=== PATIENT | male | born 1970 | race Caucasian/White ===

== ENCOUNTER 2020-05-29 19:42 | Emergency (ER) | payer BC, SELFPAY ==
[2020-05-29 19:48] VITALS: BP 142/98; PULSE 66; RESP 16; TEMP 36.6; O2SAT 97
--- NOTE | 2020-05-29 19:58 | W.ED.GENAD ---
Discharge Plan Disposition Patient Disposition: HOME Condition: Stable Discharge Details Clinical Impression: Laceration of finger of right hand Primary Care Provider: Silvia Wilder ED Provider: Sumi Kelley Home Meds and New Rx's Prescriptions: No Action No Known Home Meds RF: 0 Discharge Instructions Instructions: Finger Laceration (ED), Skin Adhesive Care (ED) Additional Instructions: Tissue adhesive will fall off in approximately 4 to 6 days. Keep clean and dry. No scrubbing no soaking. Return to the ED for any signs of infection including increased redness, swelling, drainage or red streaks. The anesthesia medication will wear off in approximately 2 to 3 hours. Follow up with primary care provider in 3-5 days. Return to ED sooner if any worsening or concerns. Increase oral fluids. Please take Tylenol or Ibuprofen with food every 4-6 hours as needed for pain and swelling. Stand Alone Forms: Work Release Referrals: Silvia Wilder MD, [place] [Primary Care Provider] - Medical Decision Making 50-year-old male presents to the ED chief complaint of right third digit laceration which occurred just prior to arrival. Patient states he was attempting to catch a falling ceramic dish while doing dishes sustaining laceration to the pad of his right middle finger. On initial exam there is some small venous oozing noted, does have full range of motion noted to the finger, unsure of last tetanus vaccination. No other injuries or complaints. Digital block performed as noted in procedure note above patient tolerated well anesthesia was achieved. After further evaluation of laceration is determined does not need sutures at this time. Bleeding has stopped. Questionable reattachment of the flap color seems pale. Because of this and probable loss of flap will just do tissue adhesive and dressing at this time. Patient is agreeable to this plan. Discussed strict return instructions including signs of infection and discussed home care. Patient verbalized understanding. Dressing applied by residential treatment staff prior to discharge. HPI General Mode of arrival: ambulatory. Date/Time Provider Initiated Documentation: 05/29/20 19:48. Limitations to Documentation: no limitations. Information obtained by: patient. HPI Narrative: 50-year-old male presents to the ED chief complaint of right third digit laceration which occurred just prior to arrival. Patient states he was attempting to catch a falling ceramic dish while doing dishes sustaining laceration to the pad of his right middle finger. On initial exam there is some small venous oozing noted, does have full range of motion noted to the finger, unsure of last tetanus vaccination. No other injuries or complaints. Related Data Home Medications Medication Instructions Recorded Confirmed Unknown [No Known Home Meds] 05/29/20 05/29/20 Allergies Allergy/AdvReac Type Severity Reaction Status Date / Time No Known Allergies Allergy Unverified 05/03/17 11:27 General Stated Complaint: Laceration LORIE: 4 Review of Systems Integumentary/Breasts Skin/Breast: Reports wounds (Laceration right middle finger) [facility] Surgical History VEIN ABLATION (LEFT GREATER) (09/15/14) Social History Smoking/Tobacco Use Status: Former Tobacco Use Smoking risk assessment performed?: Yes Alcohol Intake: current Alcohol Intake frequency: holidays/special occasions only Drug use: Never Substance use type: does not use Do you feel safe at home: Yes Do you feel safe in your relationship?: Yes Exam Extrem Right upper extremity: hand Details: laceration 3rd digit palmar aspect distal Details: flap, actively bleeding, involving subcutaneous tissue and with motor nerve function intact; not contaminated Course Vital Signs Vital signs: Vital Signs Temperature 36.6 C 05/29/20 19:48 Pulse 66 05/29/20 19:48 Respiratory Rate 16 05/29/20 19:48 Blood Pressure 142/98 H 05/29/20 19:48 Pulse Oximetry 97 05/29/20 19:48 Temperature 36.6 C 05/29/20 19:48 Temperature Source Skin 05/29/20 19:48 Pulse 66 05/29/20 19:48 Respiratory Rate 16 05/29/20 19:48 Blood Pressure 142/98 H 05/29/20 19:48 Blood Pressure Position Sitting 05/29/20 19:48 Pulse Oximetry 97 05/29/20 19:48 Oxygen Delivery Method Room Air 05/29/20 19:48 Oxygen Flow Rate 0 05/29/20 19:48 Procedures Laceration Laceration 1: Site: hand Side (If applicable): right Size (cm): 1 Description: flap Depth: simple, single layer Pre-repair: wound explored and irrigated extensively Skin layer closed with: other (Tissue adhesive) Nerve Block Nerve Block 1: Time out performed: No Local Anesthetic: Lidocaine 1% and Bupivicaine 0.5% Amount of anesthesia used (mL): 4 Side: right Nerve Blocks: digital (4 sided Ring block) Procedure Successful: Yes Patient Tolerated Procedure: well Complications: none
[2020-05-29] MEDS: Bupivacaine 0.5% Pres-Free 30 ML VIAL IJ (20:10)
== END 2020-05-29 21:30 | disposition home or self-care (01) ==
PROVIDERS: Emergency Provider Registered Nurse Emergency; PCP Family Medicine
DX: S61.212A Laceration without foreign body of right middle finger without damage to nail, initial encounter (principal); W25.XXXA Contact with sharp glass, initial encounter
CPT/HCPCS: 12001; 90471

== ENCOUNTER 2023-07-25 04:56 | Outpatient (CLI) | payer BC, SELFPAY ==
[2023-07-25 09:49] LABS: Anion Gap 13.3 mmol/L (3-11); BUN 25 mg/dL (7-18); CO2 24.7 mmol/L (21.0-32.0); CREATININE 1.3 mg/dL (0.70-1.30); Calcium 9.4 mg/dL (8.5-10.1); Calculated LDL 127 mg/dL (<100); Chloride 103 mmol/L (98-107); Cholesterol 196 mg/dL (<200); Estimated GFR 65.28 (mL/min/1.73m2); Glucose 102 mg/dL (74-106); HDL Cholesterol 57 mg/dL (40-60); Potassium 4.2 mmol/L (3.5-5.1); Sodium 141 mmol/L (136-145); Triglyceride 60 mg/dL (<150)
[2023-07-25 17:52] LABS: PSA, Screening 0.5 ng/mL (<=3.5)
== END 2023-07-25 04:57 | disposition home or self-care (01) ==
LOC: LBO 04:56
PROVIDERS: Emergency Medicine; Absent Provider Nurse Practitioner Adult Health; Referring Provider Nurse Practitioner Adult Health; Visit Provider Nurse Practitioner Adult Health
DX: I10 Essential (primary) hypertension (principal); R35.1 Nocturia; N40.1 Benign prostatic hyperplasia with lower urinary tract symptoms; Z12.5 Encounter for screening for malignant neoplasm of prostate
CPT/HCPCS: 36415; 80048; 80061; 84153

== ENCOUNTER 2023-09-07 02:05 | Outpatient (CLI) | payer BC, SELFPAY ==
[2023-09-07 08:05] LABS: Anion Gap 6.2 mmol/L (3-11); BUN 22 mg/dL (7-18); CO2 27.8 mmol/L (21.0-32.0); CREATININE 1.2 mg/dL (0.70-1.30); Calcium 9.2 mg/dL (8.5-10.1); Chloride 104 mmol/L (98-107); Estimated GFR 71.86 (mL/min/1.73m2); Glucose 103 mg/dL (74-106); Potassium 3.8 mmol/L (3.5-5.1); Sodium 138 mmol/L (136-145)
[2023-09-07 08:09] LABS: Hemoglobin A1C 5.5 % (<5.7)
== END 2023-09-07 02:06 | disposition home or self-care (01) ==
LOC: LBO 02:06
PROVIDERS: PCP Nurse Practitioner Adult Health; Visit Provider Nurse Practitioner Adult Health
DX: I10 Essential (primary) hypertension (principal); R73.01 Impaired fasting glucose
CPT/HCPCS: 36415; 80048; 83036

== ENCOUNTER 2024-03-31 01:31 | Outpatient (CLI) | payer BC, SELFPAY ==
--- NOTE | 2024-03-31 08:15 | DI.RAD_ITS ---
Exam(s) XR KNEE RT 3V AP,LAT,LOUIS EXAM: XR KNEE RT 3V AP,LAT,LOUIS CLINICAL HISTORY: 7 weeks R knee pain,s/p remote injury,? bony abnl,derangement meniscus,. TECHNIQUE: 2D digital imaging was performed of the right knee. Four views obtained. AP, lateral and PA tunnel views were obtained. COMPARISON: CR RIGHT KNEE LIMITED 1 OR 2 VIEW from 05/03/2017 FINDINGS: BONES: No acute fracture is present. No bony destructive lesion is seen. JOINTS: The knee is normally aligned. No joint effusion is seen. SOFT TISSUE: Normal. IMPRESSION: Unremarkable radiographs of the right knee. DATA REPOSITORY: RADIATION DOSE DELIVERED:
== END 2024-03-31 01:51 ==
LOC: DI 01:31
PROVIDERS: PCP Nurse Practitioner Adult Health; Visit Provider Nurse Practitioner Adult Health
DX: M25.561 Pain in right knee (principal)
CPT/HCPCS: 73562

== ENCOUNTER 2024-05-30 00:22 | Outpatient (CLI) | payer BC, SELFPAY ==
--- OUTSIDE RECORDS SUMMARY | 2024-05-30 00:38 | XMS_ITS | Encounter Summary ---
Author Organization [facility] [place] [address] Care Team Providers Care Sheet Fed Printer Name Role Phone Oscar Jones MD Primary Care Provider U navailable Reason for Visit * Reason Onset Date Comments Medication Refill 04/29/2014 Encounter Details Date Type Department Care Team (Late st Contact Info) Description 04/29/2014 [place] [address] Helio Reis MD [facility] [place] [address] Social History Tobacco Use Types Packs/Day Years Used Date Smoking Tobacco: Never Smokeless Tobacco: Former Chew Quit: 01/15/1998 Alcohol Use Standard Drinks/Week Comments Yes 0 (1 standard drink = 0.6 oz pur e alcohol) Occasional Sex and Gender Information Value Date Recorded Sex Assigned at Not on file Gender Identity Not on file Sexual Orientation Not on file documented as of this encounter Plan of Treatment Not on file documented as of this encounter Visit Diagnoses Not on filedocumented in this encounter Care Teams Sheet Fed Printer Relationship Specialty Start Date End Date Oscar Jones MD PCP - General 04/12/10 02/27/17 documented as of this encounter
--- OUTSIDE RECORDS SUMMARY | 2024-05-30 00:38 | XMS_ITS | Encounter Summary ---
Author Organization [facility] Address [address] [place] [id number] Care Team Providers Care Roofing Layer Name Role Phone Unavailable Primary Care Provider Unavailabl e Encounter Details Date Type Department Care Team (Late st Contact Info) Description 07/25/2023 Lab Requisition [facility] Pathology & Laboratory Medicine - [facility] [address] [place] [address] Outr Resulting Lab, Provider Social History Tobacco Use Types Packs/Day Years Used Date Smoking Tobacco: Never Assessed Sex and Gender Information Value Date Recorded Sex Assigned at Not on file Legal Sex Male 19:16 EDT Gender Identity Not on file Sexual Orientation Not on file documented as of this encounter Plan of Treatment Not on file documented as of this encounter Procedures Procedure Name Priority Date/Time Associated Diagnosis Comments PSA TOTAL, DIAGNOSTIC Routine 07/25/2023 8:53 EST documented in this encounter Results * PSA TOTAL, DIAGNOSTIC (07/25/2023 8:53 EST) PSA 0.5 <=3.5 ng/mL 07/25/2023 17:48 EST [facility] Blood VENOUS BLOOD / Unknown 07/25/2023 8:53 EST 07/25/2023 16:42 EST Narrative [facility] - 07/25/2023 17:48 EST NOTE: Serum PSA concentration should not be interpreted as absolute evidence for the presence or absence of malignant disease. Assayed on Siemens ADVIA Centaur XPT using chemiluminescent technology.??Values obtained by using different assay methods cannot be used interchangeably. us Provider Outr Resulting Lab CHEMISTRY & BLOOD GA S ORDERABLES Final Result [facility] [address] [place] [address] documented in this encounter Visit Diagnoses Not on filedocumented in this encounter
--- OUTSIDE RECORDS SUMMARY | 2024-05-30 00:38 | XMS_ITS | Encounter Summary ---
Author Organization [facility] Address [facility] [place] [address] Care Team Providers Care Class B Truck Driver Name Role Phone Oscar Jones MD Primary Care Provider U ceceliaailable Reason for Visit * Reason Comments Medication Refill Encounter Details Date Type Department Care Team (Late st Contact Info) Description 04/27/2014 [place] [address] Helio Reis MD [facility] [place] [address] Social History Tobacco Use Types Packs/Day Years [...] on filedocumented in this encounter Care Teams Class B Truck Driver Relationship Specialty Start Date End Date Oscar Jones MD PCP - General 04/12/10 02/27/17 documented as of this encounter
--- OUTSIDE RECORDS SUMMARY | 2024-05-30 00:38 | XMS_ITS | Encounter Summary ---
Author Organization [facility] Address [facility] [facility] [place] [address] Care Team Providers Care Supervisor Electronics Processing Name Role Phone Unknown Primary Care Provider Unavailabl e Encounter Details Date Type Department Care Team (Late st Contact Info) Description 05/13/2019 [place] [address] Mariusz Dailey MD [facility] [place] [address] Social History Tobacco Use Types Packs/Day Years Used Date Smoking Tobacco: Never Smokeless Tobacco: Former Chew Quit: 01/15/1998 Alcohol Use Standard Drinks/Week Comments Yes 0 (1 standard drink = 0.6 oz pur e alcohol) Occasional Sex and Gender Information Value Date Recorded Sex Assigned at Not on file Gender Identity Not on file Sexual Orientation Not on file documented as of this encounter Miscellaneous Notes * Telephone Encounter - Erum Duron - 05/13/2019 9:59 AM EST [facility] called to refer Ronen for a retinal hole OD, without detachment. Vision is 20/25OD. Explained that there is no retina coverage until 05/15, provider understands and is okay with the patient waiting until then. Appointment made with DOC for 05/15 documented in this encounter Plan of Treatment Not on file documented as of this encounter Visit Diagnoses Not on filedocumented in this encounter Care Teams Supervisor Electronics Processing Relationship Specialty Start Date End Date Unknown None PCP - General 02/28/17 documented as of this encounter
--- OUTSIDE RECORDS SUMMARY | 2024-05-30 00:38 | XMS_ITS | Clinical Summary ---
Author Organization [facility] Address [facility] [place] [address] Care Team Providers Care Pipeline Dispatcher Name Role Phone Unknown Primary Care Provider Unavailabl e Allergies Active Allergy Reactions Criticality Noted Date Comments Pollen Extracts 01/15/2013 Dust,dirt Medications Medication Sig Dispensed Refills Start Date End Date Status acetaminophen (TYLENOL) 500 mg tablet Take 1,000 mg by mouth as needed. Active ibuprofen (ADVIL;MOTRIN) 200 mg tablet Take 400 mg by mouth every 6 hours as needed. Active LORazepam (ATIVAN) 1 mg tablet Take 1 tablet by mouth nightly as needed. 15 tablet 5 01/15/2013 Active Additional Information Patient not taking.Reported on 06/18/2019 indomethacin (INDOCIN) 50 mg Capsule TAKE ONE CAPSULE BY MOUTH TWICE A DAY NEEDED 30 capsule 2 04/27/2014 Active Additional Information Patient not taking.Reported on 06/18/2019 hydrOXYzine (VISTARIL) 25 mg Capsule Take 1 capsule by mouth 2 times daily as needed. 30 capsule 3 04/29/2014 Active Additional Information Patient not taking.Reported on 06/18/2019 Active Problems Problem Noted Date Diagnosed Date Migraine 01/15/2013 Hx of submucous nasal surgery 01/15/2013 S/P tonsillectomy 01/15/2013 Social History Tobacco Use Types Packs/Day Years Used Date Smoking Tobacco: Never Smokeless Tobacco: Former Chew Quit: 01/15/1998 Alcohol Use Standard Drinks/Week Comments Yes 0 (1 standard drink = 0.6 oz pur e alcohol) Occasional Sex and Gender Information Value Date Recorded Sex Assigned at Not on file Gender Identity Not on file Sexual Orientation Not on file Last Filed Vital Signs Vital Sign Reading Time Taken Comments Blood Pressure 136/86 01/15/2013 2:34 PM EDT Pulse 70 01/15/2013 2:34 PM EDT Temperature - - Respiratory Rate - - Oxygen Saturation - - Inhaled Oxygen Concentration - - Weight 99.8 kg (220 lb) 01/24/2013 5:40 AM EDT Height 180.3 cm (5' 11) 01/15/2013 2:34 PM EDT Body Mass Index 30.68 01/15/2013 2:34 PM EDT Plan of Treatment Health Maintenance Due Date Last Done Comments CT Colonography 1969 Colonoscopy 1969 Colorectal Cancer Screening 1969 FIT DNA 1969 FIT 1969 Sigmoidoscopy (10 year) with FIT yearly 1969 Sigmoidoscopy 1969 HIV screen 1987 Hepatitis C Screening 1987 Lipid Screening 1987 Hepatitis B vaccine (0-59 yrs) (1) 1988 Tetanus/Diphtheria/Pertussis Vaccines (1 - Tdap) 03/28 Zoster vaccine (1 of 2) 2019 Covid-19 Vaccine (1 - season) 2024 Influenza (Flu) vaccine (1 o f 1 - Influenza standard series) 01/20/2024 Advance Directive 2024 Care Teams Pipeline Dispatcher Relationship Specialty Start Date End Date Unknown None PCP - General 02/28/17
--- OUTSIDE RECORDS SUMMARY | 2024-05-30 00:38 | XMS_ITS | Clinical Summary ---
Author Organization [facility] Address [address] [place] [address] Care Team Providers Care Master Ocean Name Role Phone Unavailable Primary Care Provider Unavailabl e Social History Tobacco Use Types Packs/Day Years Used Date Smoking Tobacco: Never Assessed Sex and Gender Information Value Date Recorded Sex Assigned at Not on file Legal Sex Male 19:16 EDT Gender Identity Not on file Sexual Orientation Not on file Plan of Treatment Health Maintenance Due Date Last Done Comments Hepatitis C Screen 1969 Hepatitis B Vaccine (1 of 3 - 19+ 3-dose series) 03/28 COVID-19 Vaccine (2023- season) 2024
--- OUTSIDE RECORDS SUMMARY | 2024-05-30 00:38 | XMS_ITS | Encounter Summary ---
Author Organization [facility] [place] [address] Care Team Providers Care Protection Chief Industrial Plant Name Role Phone Unknown Primary Care Provider Unavailabl e Encounter Details Date Type Department Care Team (Late st Contact Info) Description 05/15/2019 12:45 PM EST Office Visit Ophthalmology at [facility] [place] [address] Paulina [place] MD Retinal hole of right eye Social History Tobacco Use Types Packs/Day Years Used Date Smoking Tobacco: Never Smokeless Tobacco: Former Chew Quit: 01/15/1998 Alcohol Use Standard Drinks/Week Comments Yes 0 (1 standard drink = 0.6 oz pur e alcohol) Occasional Sex and Gender Information Value Date Recorded Sex Assigned at Not on file Gender Identity Not on file Sexual Orientation Not on file documented as of this encounter Progress Notes * Paulina [place] MD - 05/15/2019 12:45 PM EST ASSESSMENT/PLAN: 1. Retinal hole of right eye Visual Acuity Visual Acuity (Snellen - Linear) Right Left Dist sc 20/20 -2 20/20 Near cc 20/25 20/20 1. Retinal hole, right eye (Dx 04/2019) We agree with your diagnosis of retinal hole in the right eye. Discussed the risks/benefits/alternatives of observation and prophylactic laser photocoagulation and patient wishes to proceed with prophylactic laser Pertinent risk factors: (-) Family history of retinal detachment, (+++) symptoms, (-) history of retinal detachment in the one eye The pertinent AAO video shown/ASRS fact sheet given Discussed the risk of surgery including need for additional surgery, cataract formation, retinal detachment, suprachoroidal hemorrhage, lens dislocation, loss of vision 2. Posterior vitreous detachment, right eye Discussed the high-risk period for RDs and RTs are the first 1-2 months after the onset of the PVD.RD precautions given. Also discussed the chances and symptoms of PVD in the fellow eye Follow up 5-6 weeks for HCK OD /OCT OU I, Joey Davenport, have performed the documentation for this encounter in the presence of, and acting as a scribe for Paulina [place] MD. I performed the services which were documented by the scribe, and I agree with the accuracy of the documentation in this encounter. Paulina [place] MD, PhD Extended Ophthalmoscopy Indication: 1. Retinal hole of right eye Technique: A) Indirect ophthalmoscopy with scleral depression B) Slit lamp exam with 90D/78D lens Findings: Main Ophthalmology Exam External Exam Right Left External Normal Normal Slit Lamp Exam Right Left Lids/Lashes Normal Normal Conjunctiva/Sclera White and quiet White and quiet Cornea Clear Clear Anterior Chamber Deep and quiet Deep and quiet Iris Round and reactive, dilated Round and reactive, dilated Lens Clear Clear Fundus Exam Right Left Vitreous PVD, no pigment Normal Disc Normal Normal C/D Ratio 0.3 0.4 Macula Normal Normal Vessels Normal Normal Periphery superior operculated hole Normal documented in this encounter Plan of Treatment Not on file documented as of this encounter Visit Diagnoses Diagnosis Retinal hole of right eye documented in this encounter Care Teams Protection Chief Industrial Plant Relationship Specialty Start Date End Date Unknown None PCP - General 02/28/17 documented as of this encounter
--- OUTSIDE RECORDS SUMMARY | 2024-05-30 00:38 | XMS_ITS | Referral Summary ---
Author Organization [facility] Address [address] [place] [address] Care Team Providers Care Business Management Specialist Name Role Phone Unavailable Primary Care Provider Unavailabl e Social History Tobacco Use Types Packs/Day Years Used Date Smoking Tobacco: Never Assessed Sex and Gender Information Value Date Recorded Sex Assigned at Not on file Legal Sex Male 19:16 EDT Gender Identity Not on file Sexual Orientation Not on file Plan of Treatment Not on file
--- OUTSIDE RECORDS SUMMARY | 2024-05-30 00:38 | XMS_ITS | Encounter Summary ---
Author Organization [facility] Address [facility] [place] [address] Care Team Providers Care Winding Machine Operator Name Role Phone Unknown Primary Care Provider Unavailabl e Encounter Details Date Type Department Care Team (Late st Contact Info) Description 06/18/2019 3:30 PM EST Office Visit Ophthalmology at [facility] [place] [address] Paulina [place] MD Retinal hole of right eye (s/p prophylactic LR 05/15/19) Social History Tobacco Use Types Packs/Day Years [...] Progress Notes * Paulina [place] MD - 06/18/2019 3:30 PM EST ASSESSMENT/PLAN: 1. Retinal hole of right eye (s/p prophylactic LR 05/15/19) Visual Acuity Visual Acuity (Snellen - Linear) Right Left Dist sc 20/25 -2 20/30 Dist ph sc 20/20 20/20 -1 Near sc 20/20 20/25 Tonometry Tonometry (Applanation, 3:39 PM) Right Left Pressure 18 18 1. Retinal hole, right eye (Dx 04/2019) - s/p prophylactic laser 05/15/19 Today 06/18/19 The retinal hole is well treated with laser. Reassurance provided and recommended observation. 2. ERM OD Mild, monitor 3 Posterior vitreous detachment, right eye monitor Follow up 1 year for DFE/OCT OU I, Joey Davenport, have performed the documentation for this encounter in the presence of, and acting as a scribe for Paulina [place] MD. I performed the services which were documented by the scribe, and I agree with the accuracy of the documentation in this encounter. Paulina [place] MD, PhD documented in this encounter Plan of Treatment Not on file documented as of this encounter Visit Diagnoses Diagnosis Retinal hole of right eye (s/p prophylactic LR 05/15/19) documented in this encounter Care Teams Winding Machine Operator Relationship Specialty Start Date End Date Unknown None PCP - General 02/28/17 documented as of this encounter
--- OUTSIDE RECORDS SUMMARY | 2024-05-30 00:38 | XMS_ITS | Encounter Summary ---
Author Organization [facility] Address [facility] [place] [address] Care Team Providers Care Manager Critical Care Name Role Phone Unknown Primary Care Provider Unavailabl e Encounter Details Date Type Department Care Team (Latest Contact Info) Description 05/15/2019 1:30 PM EST Procedure visit Ophthalmology at [facility] [place] [address] Paulina [place] MD Retinal hole of right [...] on file documented as of this encounter Patient Instructions * Patient Instructions* Paulina [place] MD - 05/15/2019 1:30 PM EST The doctor recommended laser retinopexy. What should I expect? Before the Laser The doctor will use topical anesthetics with drops and/or injections to numb up the eye. During the laser The laser takes 5-15 minutes. The patients frequently feel some discomfort that is generally well tolerated. If you feel that you cannot tolerate it please tell the doctor and the settings will be adjusted. If you still feel pain the treatment can be stopped. A small minority of the patients feel light-headed during the laser. If you feel so please let usknow and we will stop it. If you're diabetic please make sure you eat at your usual times prior to the laser. Immediately after the laser The vision is very blurry for 1-2 minutes but goes back to baseline. Some patients feel foreign body sensation and mild pain for ~24 hours and in these cases application of over the counter artificial tears is recommended. Over the counter medications (e.g. Tylenol or ibuprophen) might also help For several days after the laser The eye might look red and swollen. Use of artificial tears sometimes helps. Activity restrictions: A) If the laser was done for the treatment of a retinal tear/detachment please avoid any high impact activities such as long distance running, heavy weight lifting (i.e. More than 20lbs), contact sports (e.g. boxing, basketball etc) for 2 weeks. It's ok however to do most of your basic daily activities including sports with low impact (swimming, bike riding, walking on treadmill etc) B) These limitations do not apply to those who had Panretinal photocoagulation laser for diabeticretinopathy. These patients can continue their previous daily activities documented in this encounter Plan of Treatment Not on file documented as of this encounter Procedures Procedure Name Priority Date/Time Associated Diagnosis Comments REPAIR RETINAL BREAK(S)-LASER - OD - RIGHT EYE Routine 05/15/2019 5:39 PM EST Retinal hole of right eye documented in this encounter Results * Repair Retinal Break(S)-Laser - OD - Right Eye (05/15/2019 5:39 PM EST) Anatomical Region Laterality Modality Other Narrative 05/15/2019 5:39 PM EST Pre-Op Patient understands the risks and benefits of the treatment as outlined on the consent. Anesthesia Subconjunctival anesthesia was used. Laser Information The type of laser was argon. Color was green. The duration in seconds was 80.0. Laser power was 300.0. Total spots was 45. Post-op The patient tolerated the procedure well. There were no complications. The patient received written and verbal post procedure care education. Paulina [place] MD OPHTHALMOLOGY SERVICES ORDERABLES documented in this encounter Visit Diagnoses Diagnosis Retinal hole of right eye documented in this encounter Care Teams Manager Critical Care Relationship Specialty Start Date End Date Unknown None PCP - General 02/28/17 documented as of this encounter
--- OUTSIDE RECORDS SUMMARY | 2024-05-30 00:38 | XMS_ITS | Encounter Summary ---
Author Organization [facility] Address [facility] [place] [address] Care Team Providers Care Research And Insights Executive Name Role Phone Unknown Primary Care Provider Unavailabl e Reason for Visit * Reason Comments Flashes Of Light Encounter Details Date Type Department Care Team (Late st Contact Info) Description 05/15/2019 10:15 AM EST Office [place] [address] Mariusz Dailey MD [facility] [place] [place] [address] Retinal hole of right eye; PVD (posterior vitreous detachment), right eye Social History Tobacco Use Types [...] as of this encounter Progress Notes * Mariusz Dailey MD - 05/15/2019 10:15 AM EST Assessment/Plan: Ronen Rose Larry aGlicia is a 49 y.o. male with the following ophthalmic issues: 1. Retinal hole OD 2. PVD OD - symptomatic Comment: I do not see detachment or SRF around the retinal hole OD. Recommend he be followed by retina service until stable. Discussed with Dr. Roy - he will see now. documented in this encounter Plan of Treatment Not on file documented as of this encounter Visit Diagnoses Diagnosis Retinal hole of right eye PVD (posterior vitreous detachment), right eye Vitreous degeneration documented in this encounter Care Teams Research And Insights Executive Relationship Specialty Start Date End Date Unknown None PCP - General 02/28/17 documented as of this encounter
--- OUTSIDE RECORDS SUMMARY | 2024-05-30 00:39 | XMS_ITS | Encounter Summary ---
Author Organization [facility] Address [facility] [place] [address] Care Team Providers Care Warehouse Insulation Worker Name Role Phone Oscar Jones MD Primary Care Provider Simone raihernan Encounter Details Date Type Department Care Team (Late st Contact Info) Description 01/15/2013 2:45 PM EDT [place] [address] Donna Hernandez MD [facility] [place] [address] Migraine (Primary Dx) Discharge Disposition: Home Social History Tobacco Use Types Packs/Day Years Used Date Smoking Tobacco: Never Smokeless Tobacco: Former Chew Quit: 01/15/1998 Alcohol Use Standard Drinks/Week Comments Yes 0 (1 standard drink = 0.6 oz pur e alcohol) Occasional Sex and Gender Information Value Date Recorded Sex Assigned at Not on file Gender Identity Not on file Sexual Orientation Not on file documented as of this encounter Last Filed Vital Signs Vital Sign Reading Time Taken Comments Blood Pressure 136/86 01/15/2013 2:34 PM EDT Pulse 70 01/15/2013 2:34 PM EDT Temperature - - Respiratory Rate - - Oxygen Saturation - - Inhaled Oxygen Concentration - - Weight 101.6 kg (224 lb) 01/15/2013 2:34 PM EDT Height 180.3 cm (5' 11) 01/15/2013 2:34 PM EDT Body Mass Index 31.24 01/15/2013 2:34 PM EDT documented in this encounter Patient Instructions * Patient Instructions* Donna Hernandez MD - 01/15/2013 4:07 PM EDT It seems that you're still suffering from migraine headaches. These improved after the surgery on your nose. At this point I think it is reasonable just to treat you when you get a headache, and not worry about prevention. When you get a headache, you should early in the course, take one pill of Indomethacin and one pillof hydroxyzine right away, and you can repeat that 4-6 heart later if necessary, or the following morning if necessary. The combination should help you to sleep, but if it does not, you can take lorazepam one pill at night as needed. Because of the findings on your son's MRI scan, I think it is reasonable for you to get one also. Iwould also like you to get some blood tests today. Please call me after you've had the MRI scans so we can go over the results. If the treatment is not working please call. Otherwise I would like to see you back in 6 months. Donna Hernandez MD [place] [address] Pager: [phone], #[phone] Email: [email or web address] documented in this encounter Progress Notes * Donna Hernandez MD - 01/14/2013 10:53 PM EDT Chief Complaint: Migraine. History: The patient is seen in followup today. As noted earlier he had migrainous headaches partially responsive to indocin and vistaril. He had a tonsillectomy and turbinate reduction done by Dr. Orozco. This improved his nocturnal breathing, and also significantly alleviated his headaches. He was getting a relatively mild headache about once every 10 days which would respond to treatmentwith indomethacin. He tapered off all prophylactic medication. It has been a long time since I saw him. He is getting headaches about once a week, often he wakes with it. He feels some mental slowing, caffeine helps. So does ibuprofen. Headaches can prevent him from sleeping. He is sometimes nauseated. He does not describe scotomata. PMH: Patient Active Problem List Diagnosis Code ??? Migraine 346.90 ??? Hx of submucous nasal surgery V15.29 ??? S/P tonsillectomy V45.89 ROS; Eating and sleeping OK except for headaches disturbing sleep. Bowels and bladder OK. Family history: Unfortunately, his son was found to have a large and inoperable arteriovenous malformation in the context of headaches similar to those of both his parents. The patient's does not have a vascular malformation Meds: Current Outpatient Prescriptions Medication Status Sig Dispense Refill ??? acetaminophen (TYLENOL) 500 mg tablet Active Take 1,000 mg by mouth as needed. ??? ibuprofen (ADVIL;MOTRIN) 200 mg tablet Active Take 400 mg by mouth every 6 hours as needed. ??? indomethacin (INDOCIN) 50 mg capsule Active Take 1 capsule by mouth 2 times daily as needed. 30capsule 12 ??? hydrOXYzine (VISTARIL) 25 mg capsule Active Take 1 capsule by mouth 2 times daily as needed. 30capsule 12 ??? LORazepam (ATIVAN) 1 mg tablet Active Take 1 tablet by mouth nightly as needed. 15 tablet 5 Physical Examination: VS: BP 136/86 Pulse 70 Ht 180.3 cm (5' 11) Wt 101.606 kg (224 lb) BMI 31.24 kg/m2 Head, eyes, ears, nose and throat were normal. Heart and lungs were normal. The extremities were unremarkable. He is mentally intact and speech was normal. Cranial nerves were normal. Strength and reflexes were normal. Sensation was normal. Coordination was normal. His gait was stable. Laboratory: Orders Placed This Encounter Procedures ??? MRI brain with/WO contrast ??? Hepatic Function Panel ??? Basic Metabolic Panel (non-fasting) ??? TSH ??? CBC (with Diff) ??? Sedimentation rate ? ? Lyme IgG & IgM Antibody Impression: He and his family suffer from migraine headaches. His headaches significantly improved following his tonsillectomy and turbinate surgery. I suspect that nocturnal hypoxia was contributing to his symptoms. Symptoms have worsened a little over the years, and this is partly because he is not taking adequate treatment for the headaches. I am putting him back on indomethacin and hydroxyzine which had worked well in the past. I am also giving her a prescription for lorazepam to be used at night he isunable to sleep. He does not want to try any prophylactic treatment at this time The MRI abnormalities seen in his son who had similar migrainous symptoms are caused some concern, as these lesions are can be hereditary, and his son's mother does not have any vascular lesion on her MRI. I think it is prudent for the patient to get an MRI scan of the brain with gadolinium and I have requested this. Thank you for this consultation. I have asked him to call after the MRI, and also if the treatment mentioned above is not working. Iwould in any case see him back in 6 months or sooner if necessary Donna Hernandez MD [place] [address] Pager: [phone], #[phone] Email: [email or web address] Copy: Oscar Jones M.D. documented in this encounter Miscellaneous Notes * Addendum Note - Donna Hernandez MD - 01/15/2013 4:34 PM EDTAddended by: DONNA HERNANDEZ on: 01/15/2013 04:34 PM Modules accepted: Orders documented in this encounter Plan of Treatment Not on file documented as of this encounter Results * MRI brain with/WO contrast (01/24/2013 3:14 PM EDT) Anatomical Region Laterality Modality Head Magnetic Resonan ce 01/24/2013 3:14 PM EDT Narrative 01/24/2013 4:07 PM EDT Examination MR BRAIN W/WO CONTRAST Clinical History Intractable migraine Family member (son) with migraine and giant av malformation R/O lesion Comparison None Technique MRI of the brain with and without contrast. ??Routine protocol. ??20 mL of Magnevist administered. Findings There are no intracranial masses, mass effect or extra-axial collections. ??The ventricles and sulci are proportional size. ??The paranasal sinuses are clear except for a small mucous retention cyst within the left maxillary sinus. ??The proximal intracranial flow voids appear normal. ??Incidentally noted is an aerated right anterior clinoid process. ??No diffusion weighted abnormalities. ?? No abnormal enhancement. Midline structures appear normal. ?? Impression Examination within normal limits. Procedure Note Perez Green MD - 01/24/2013 Examination MR BRAIN W/WO CONTRAST Clinical History Intractable migraine Family member (son) with migraine and giant av malformation R/O lesion Comparison None Technique MRI of the brain with and without contrast. Routine protocol. 20 mL of Magnevist administered. Findings There are no intracranial masses, mass effect or extra-axial collections.The ventricles and sulci are proportional size. The paranasal sinuses areclear except for a small mucous retention cyst within the left maxillary sinus.The proximal intracranial flow voids appear normal. Incidentally noted is an aerated right anterior clinoid process. No diffusion weightedabnormalities. No abnormal enhancement. Midline structures appear normal. Impression Examination within normal limits. Donna Hernandez MD IMG MRI ORDERABLES * Lyme IgG & IgM Antibody (01/24/2013 1:28 PM EDT) Lyme Antibody Neg Neg [facility] Blood specimen (specimen) 01/24/2013 1:28 PM EDT 01/27/2013 9:19 AM EDT Narrative Resulting Agency Comment Spec In Lab Donna Hernandez MD IMMUNOLOGY ORDERABLE S Performing Organization Address [facility] de Phone Number [facility] * Sedimentation rate (01/24/2013 1:28 PM EDT) Sedimentation Rate Automated 3 0 - 15 mm/hr [facility] Blood specimen (specimen) 01/24/2013 1:28 PM EDT 01/24/2013 1:31 PM EDT Narrative Resulting Agency Comment Spec In Lab Donna Hernandez MD HEMATOLOGY ORDERABLE S [facility] * CBC (with Diff) (01/24/2013 1:28 PM EDT) White Blood Cell 6.6 4.0 - 10.0 x10(3)/mcL [facility] Red Blood Cell 5.24 4.63 - 6.08 x10(6)/mcL [facility] Hemoglobin 16.3 13.7 - 17.5 gm/dL [facility] Hematocrit 46.1 40.0 - 51.0 % [facility] Mean Cell Volume 88.0 79.0 - 92.0 fL [facility] Mean Cell Hemoglobin 31.1 25.6 - 32.2 pg [facility] Mean Cell Hemoglobin Concentration 35.4 32.0 - 36.5 gm/dL [facility] Platelet 206 145 - 370 x10(3)/mcL [facility] RDW Standard Deviation 38.5 35.0 - 46.0 fL [facility] RDW coefficient of variation 12.1 10.9 - 14.4 % [facility] Mean Platelet Volume 9.1 9.0 - 12.0 fL [facility] Blood specimen (specimen) 01/24/2013 1:28 PM EDT 01/24/2013 1:31 PM EDT Narrative Resulting Agency Comment Spec In Lab Donna Hernandez MD HEMATOLOGY ORDERABLE S Performing Organization Address [facility] Co de Phone Number [facility] * TSH (01/24/2013 1:28 PM EDT) Thyroid Stimulating Hormone 2.23 0.27 - 4.20 mcIU/mL [facility] Blood specimen (specimen) 01/24/2013 1:28 PM EDT 01/24/2013 1:31 PM EDT Narrative Resulting Agency Comment Spec In Lab Donna Hernandez MD CHEMISTRY ORDERABLES Performing Organization Address [facility] Co de Phone Number [facility] * (ABNORMAL) Basic Metabolic Panel (non-fasting) (01/24/2013 1:28 PM EDT) [facility] Glucose 92 60 - 199 mg/dL [facility]ILL[facility]NI[facility] Comment:Diabetes: >=200 mg/d L plus symptoms Blood Urea Nitrogen 20 10 - 20 mg/dL [facility] Creatinine 1.32 0.80 - 1.50 mg/dL [facility] Comment: Please note that the pediatric reference intervals supplied above were not validated at [facility]. Results from pediatric patients should be interpreted in conjunction to the patient's age, height and muscle mass. Sodium 139 135 - 145 mmol/L [facility] Potassium 4.6 3.5 - 5.0 mmol/L [facility] Comment: Please note: ??Patients with WBC >100,000 may have falsely elevated Potassium levels. ??For accurate Potassium quantification in these patients send serum separator tube (gold top) for subsequent determinations. ??Contact the Clinical Chemistry Laboratory if there are any questions. Chloride 102 98 - 107 mmol/L [facility] Carbon Dioxide 27 22 - 31 mmol/L [facility] Anion Gap 10 5 - 15 mmol/L [facility] Calcium 9.6 8.5 - 10.5 mg/dL [facility] Est Glomerular Filtration Rate 59(L) >=60 [facility] Comment: This estimated GFR (eGFR) value was calculated using the MDRD equation which has been validated on patients between the ages of 18 and 70. The MDRD should not be used to assess kidney function in patients < 18 years of age or in patients with extremes of body mass, or in patients with acute kidney failure. This value should be multiplied by 1.2 for patients. For further information please copy and paste the following links into your internet browser. http://www.nkdep.nih.gov/lab-evaluation.shtml http://www.kidney.org/professionals/ Blood specimen (specimen) 01/24/2013 1:28 PM EDT 01/24/2013 1:31 PM EDT Narrative Resulting Agency Comment Spec In Lab Donna Hernandez MD CHEMISTRY ORDERABLES [facility] * Hepatic Function Panel (01/24/2013 1:28 PM EDT) Protein, Total 7.1 6.4 - 8.3 gm/dL [facility] Albumin 4.7 3.2 - 5.2 gm/dL [facility] Aspartate Aminotransferase 27 0 - 39 unit/L [facility] Alanine Aminotransferase 32 0 - 55 unit/L [facility] Alkaline Phosphatase 49 40 - 120 unit/L [facility] Bilirubin, Total 1.2 0.2 - 1.3 mg/dL [facility] Bilirubin, Direct 0.2 0.0 - 0.3 mg/dL [facility] Blood specimen (specimen) 01/24/2013 1:28 PM EDT 01/24/2013 1:31 PM EDT Narrative Resulting Agency Comment Spec In Lab Donna Hernandez MD CHEMISTRY ORDERABLES [facility] documented in this encounter Visit Diagnoses Diagnosis Migraine- Primary Migraine, unspecified, without mention of intractable migraine without mention of status migrainosus Migraine Migraine, unspecified, without mention of intractable migraine without mention of status migrainosus documented in this encounter Care Teams Warehouse Insulation Worker Relationship Specialty Start Date End Date Oscar Jones MD PCP - General 04/12/10 02/27/17 documented as of this encounter
--- OUTSIDE RECORDS SUMMARY | 2024-05-30 00:39 | XMS_ITS | Encounter Summary ---
Author Organization Count Includes [facility] Address [facility] [place] [address] Care Team Providers Care Service Bar Cashier Name Role Phone Oscar Jones MD Primary Care Provider Simone smith Encounter Details Date Type Department Care Team (Latest Contact Info) Description 01/24/2013 1:18 PM EDT - 01/24/2013 11:59 PM EDT Hospital [place] [address] Helio Reis MD [facility] [place] [address] Migraine Discharge Disposition: Home Social History Tobacco Use [...] on file documented as of this encounter Medications at Time of Discharge Medication Sig Dispensed Refills Start Date End Date acetaminophen (TYLENOL) 500 mg tablet Take 1,000 mg by mouth as needed. ibuprofen (ADVIL;MOTRIN) 200 mg tablet Take 400 mg by mouth every 6 hours as needed. LORazepam (ATIVAN) 1 mg tablet Take 1 tablet by mouth nightly as needed. 15 tablet 01/15/2013 indomethacin (INDOCIN) 50 mg capsule Take 1 capsule by mouth 2 times daily as needed. 30 capsule 12 01/15/2013 04/27/2014 hydrOXYzine (VISTARIL) 25 mg capsule Take 1 capsule by mouth 2 times daily as needed. 30 capsule 12 01/15/2013 04/29/2014 documented as of this encounter Plan of Treatment Not on file documented as of this encounter Procedures Procedure Name Priority Date/Time Associated Diagnosis Comments LYME IGG & IGM ANTIBODY Routine 01/24/2013 1:28 PM EDT Migraine DIFFERENTIAL, AUTOMATED Routine 01/24/2013 1:28 PM EDT SEDIMENTATION RATE Routine 01/24/2013 1: 28 PM EDT Migraine CBC (WITH DIFF) Routine 01/24/2013 1:28 PM EDT Migraine TSH Routine 01/24/2013 1:28 PM EDT Migraine HEPATIC FUNCTION PANEL Routine 3 1:28 PM EDT Migraine BASIC METABOLIC PANEL Routine 01/24/2013 1:28 PM EDT Migraine documented in this encounter Results * (ABNORMAL) Differential, Automated (01/24/2013 1:28 PM EDT) Neutrophil % 76.9(H) 34.0 - 71.0 % [facility] Neutrophil Absolute 5.05 1.50 - 6.30 x10(3)/mc L [facility] MILLENNI[facility] Lymph % 16.1(L) 19.0 - 53.0 % [facility] MILLENNI[facility] Lymphocytes Abs 1.1 1.0 - 3.6 x10(3)/mc L [facility] MILLENNI[facility] Monocyte % 5.9 4.0 - 13.0 % [facility] MILLENNI[facility] Monocyte Abs 0.4 0.2 - 1.0 x10(3)/mc L [facility]ILLENNI[facility] Eos % 0.6 0.0 - 7.0 % [facility] MILLENNI[facility] Eosinophils Abs 0.0 0.0 - 0.5 x10(3)/mc L [facility] MILLENNI[facility] Basophil % 0.2 0.0 - 2.0 % [facility] MILLENNI[facility] Baso Absolute 0.0 0.0 - 0.2 x10(3)/mc L [facility] Immature Gran % 0.30 0.00 - 0.66 % [facility]ILLENNI[facility] Comment: Immature granulocytes(IG's)percentage and absolute count will include metamyelocytes, myelocytes, and promyelocytes. Blood smears from CBCs yielding IG's will be scanned manually for concordance. If this scan disagrees with the automated IG or if promyelocytes are noted, a manual differential will be performed. Immature Gran Absolute 0.02 0.00 - 0.05 x10(3)/mc L [facility] Blood specimen (specimen) 01/24/2013 1:28 PM EDT 01/24/2013 1:31 PM EDT Helio Reis MD HEMATOLOGY ORDERABLE S Performing Organization Address [facility] Co de Phone Number [facility] * TSH (01/24/2013 1:28 PM EDT) Thyroid Stimulating Hormone 2.23 0.27 - 4.20 mcIU/mL [facility] Blood specimen (specimen) 01/24/2013 1:28 PM EDT 01/24/2013 1:31 PM EDT Narrative Resulting Agency Comment Spec In Lab Helio Reis MD CHEMISTRY ORDERABLES Performing Organization Address [facility] de Phone Number [facility] * (ABNORMAL) Basic Metabolic Panel (non-fasting) (01/24/2013 1:28 PM EDT) Glucose 92 60 - 199 mg/dL [facility] MILLENNIUM Comment:Diabetes: >=200 mg/d L plus symptoms Blood Urea Nitrogen 20 10 - 20 mg/dL [facility] MILLENNI[facility] Creatinine 1.32 0.80 - 1.50 mg/dL [facility] MILLENNIUM Comment: Please note that the pediatric reference intervals supplied above were not validated at [facility]. Results from pediatric patients should be interpreted in conjunction to the patient's age, height and muscle mass. Sodium 139 135 - 145 mmol/L [facility] Potassium 4.6 3.5 - 5.0 mmol/L [facility] MILLENNIUM Comment: Please note: ??Patients with WBC [...] Narrative Resulting Agency Comment Spec In Lab Helio Reis MD CHEMISTRY ORDERABLES [facility] * Hepatic Function Panel (01/24/2013 1:28 PM [...] Narrative Resulting Agency Comment Spec In Lab Helio Reis MD CHEMISTRY ORDERABLES Performing Organization Address [facility] Phone Number [facility] * Lyme IgG & IgM Antibody (01/24/2013 1:28 PM EDT) Lyme Antibody Neg Neg [facility] Blood specimen (specimen) 01/24/2013 1:28 PM EDT 01/27/2013 9:19 AM EDT Narrative Resulting Agency Comment Spec In Lab Helio Reis MD IMMUNOLOGY ORDERABLE S Performing Organization Address [facility] Phone Number [facility] * Sedimentation rate (01/24/2013 1:28 PM EDT) Sedimentation Rate Automated 3 0 - 15 mm/hr [facility] Blood specimen (specimen) 01/24/2013 1:28 PM EDT 01/24/2013 1:31 PM EDT Narrative Resulting Agency Comment Spec In Lab Helio Reis MD HEMATOLOGY ORDERABLE S Performing Organization Address [facility] Phone Number [facility] * CBC (with Diff) (01/24/2013 1:28 PM [...] Platelet 206 145 - 370 x10(3)/mcL [facility] MAUBANNERI[facility] RDW Standard Deviation 38.5 35.0 - 46.0 fL [facility] RDW coefficient of variation 12.1 10.9 - 14.4 % [facility] Mean Platelet Volume 9.1 9.0 - 12.0 fL [facility] MAUB[facility]NER[facility]UM Blood specimen (specimen) 01/24/2013 1:28 PM EDT 01/24/2013 1:31 PM EDT Narrative Resulting Agency Comment Spec In Lab Helio Reis MD HEMATOLOGY ORDERABLE S [facility] documented in this encounter Visit Diagnoses Diagnosis Migraine Migraine, unspecified, without mention of intractable migraine without mention of status migrainosus documented in this encounter Care Teams Service Bar Cashier Relationship Specialty Start Date End Date Oscar Jones MD PCP - General 04/12/10 02/27/17 documented as of this encounter
--- OUTSIDE RECORDS SUMMARY | 2024-05-30 00:39 | XMS_ITS | Encounter Summary ---
Author Organization [facility] Address [facility] [place] [address] Care Team Providers Care Ballet Teacher Name Role Phone Oscar Jones MD Primary Care Provider Simone smith Encounter Details Date Type Department Care Team (Latest Contact Info) Description 01/24/2013 1:35 PM EDT - 01/24/2013 11:59 PM EDT Hospital [place] [id number] CLINIC, Helio Fuentes MD [facility] [place] [address] Migraine Discharge Disposition: Home Social History Tobacco [...] Sign Reading Time Taken Comments Blood Pressure - - Pulse - - Temperature - - Respiratory Rate - - Oxygen Saturation - - Inhaled Oxygen Concentration - - Weight 99.8 kg (220 lb) 01/24/2013 5:40 AM EDT Height - - Body Mass Index 30.68 01/15/2013 2:34 PM EDT documented in this encounter Medications at Time of Discharge Medication Sig Dispensed Refills Start Date End Date acetaminophen (TYLENOL) 500 mg tablet Take 1,000 mg by mouth as needed. ibuprofen (ADVIL;MOTRIN) 200 mg tablet Take 400 mg by mouth every 6 hours as needed. LORazepam (ATIVAN) 1 mg tablet Take 1 tablet by mouth nightly as needed. 15 tablet 5 01/15/2013 indomethacin (INDOCIN) 50 mg capsule Take 1 capsule by mouth 2 times daily as needed. 30 capsule 12 01/15/2013 04/27/2014 hydrOXYzine (VISTARIL) 25 mg capsule Take 1 capsule by mouth 2 times daily as needed. 30 capsule 01/15/2013 04/29/2014 documented as of this encounter Plan of Treatment Not on file documented as of this encounter Procedures Procedure Name Priority Date/Time Associated Diagnosis Comments MRI BRAIN WWO CONTRAST (GENERIC) Routine 01/24/2013 3:14 PM EDT Migraine documented in this encounter Results * MRI brain with/WO [...] appear normal. Impression Examination within normal limits. Helio Reis MD IMG MRI ORDERABLES documented in this encounter Visit Diagnoses Diagnosis Migraine Migraine, unspecified, without mention of intractable migraine without mention of status migrainosus documented in this encounter Administered Medications Inactive Administered Medications - up to 3 most recent administrations Medication Order MAR Action Action Date Dose Rate Site gadopentetate dimeglumine (MAGNEVIST) injection 20 mL 20 mL (0.2 mL/kg/dose ? 99.8 kg), Intravenous, ONCE PRN, Per Protocol, Starting on Sun01/24/13 at 0540, 1 dose, Until Sun01/24/13 at 1505 Given 01/24/2013 3:05 PM EDT 20 mLs documented in this encounter Care Teams Ballet Teacher Relationship Specialty Start Date End Date Oscar Jones MD PCP - General 04/12/10 02/27/17 documented as of this encounter
--- OUTSIDE RECORDS SUMMARY | 2024-05-30 00:39 | XMS_ITS | Encounter Summary ---
Author Organization [facility] Address [facility] [place] [address] Care Team Providers Care Candy Supervisor Name Role Phone Oscar Jones MD Primary Care Provider Simone smith Encounter Details Date Type Department Care Team (Late st Contact Info) Description 01/24/2013 1:08 PM EDT - 01/24/2013 1:17 PM EDT Hospital Encounter XRay at [address] [place] [id number] Migraine Social History Tobacco Use Types Packs/Day Years [...] Procedure Name Priority Date/Time Associated Diagnosis Comments XR PRE MRI ORBITS Routine 01/24/2013 1:1 6 PM EDT Migraine, unspecified, without mention of intractable migraine without mention of status migrainosus documented in this encounter Results * XR pre MRI eye foreign body (01/24/2013 1:16 PM EDT) Anatomical Region Laterality Modality Head N/A Radiographic Adriana ging 01/24/2013 1:16 PM EDT Narrative 01/24/2013 1:53 PM EDT Examination EYE F.B. Clinical History Patient to have MRI. Question of metal fragments. Comparison None Technique 2 views orbits. Findings No radiographic evidence of metallic foreign body within the orbits. ?? Visualized facial sinuses unremarkable. Impression Procedure Note Hasmukh Forrest MD - 01/24/2013 Examination EYE F.B. Clinical History Patient to have MRI. Question of metal fragments. Comparison None Technique 2 views orbits. Findings No radiographic evidence of metallic foreign body within the orbits. Visualized facial sinuses unremarkable. Impression Helio Reis MD IMG DX ORDERABLES documented in this encounter Visit Diagnoses Diagnosis Migraine Migraine, unspecified, without mention of intractable migraine without mention of status migrainosus documented in this encounter Care Teams Candy Supervisor Relationship Specialty Start Date End Date Oscar Jones MD PCP - General 04/12/10 02/27/17 documented as of this encounter
--- OUTSIDE RECORDS SUMMARY | 2024-05-30 00:39 | XMS_ITS | Encounter Summary ---
Author Organization [place] [address] Care Team Providers Care Motor Tune Up Specialist Name Role Phone Oscar Jones MD Primary Care Provider Simone smith Encounter Details Date Type Department Care Team (Late st Contact Info) Description 01/10/2013 [place] [address] Helio Reis MD [facility] [place] [address] Social History Tobacco Use Types Packs/Day Years Used Date Smoking Tobacco: Never Assessed Sex and Gender Information Value Date Recorded Sex Assigned at Not on file Gender Identity Not on file Sexual Orientation Not on file documented as of this encounter Plan of Treatment Not on file documented as of this encounter Visit Diagnoses Not on filedocumented in this encounter Care Teams Motor Tune Up Specialist Relationship Specialty Start Date End Date Oscar Jones MD PCP - General 04/12/10 02/27/17 documented as of this encounter
--- NOTE | 2024-05-30 07:45 | DI.MRI_ITS ---
Exam(s) MR LOWER JOINT RT WO EXAM: MR LOWER JOINT RT WO CLINICAL HISTORY: R KNEE PAIN,tear medial meniscus,s83.241a. TECHNIQUE: Multiplanar multisequence MRI was performed. COMPARISON: CR RIGHT KNEE LIMITED 1 OR 2 VIEW from 05/03/2017 CR XR KNEE RT 3V AP,LAT,LOUIS from 03/31/2024 FINDINGS: BONES: There is no fracture or contusion pattern. JOINTS: Articular cartilage is unremarkable. There is a small amount of fluid in the joint space. TENDONS: Extensor mechanism: Unremarkable. Medial retinaculum: Unremarkable. Lateral retinaculum: Unremarkable. Popliteus: Unremarkable. MUSCLES: Unremarkable. MENISCI: There is a tear of the free edge of the posterior horn of the medial meniscus. The lateral meniscus is unremarkable. SOFT TISSUES: Unremarkable. LIGAMENTS: Anterior Cruciate: Unremarkable. Posterior Cruciate: Unremarkable. Medial Collateral:Unremarkable. Lateral Collateral: Unremarkable. OTHER: IMPRESSION: 1. There is a tear of the posterior horn of the medial meniscus. 2. No evidence of a ligament tear. DATA REPOSITORY:
== END 2024-05-30 00:42 ==
LOC: DI 00:22
PROVIDERS: PCP Nurse Practitioner Adult Health; Visit Provider Student in an Organized Health Care Education/Training Program
DX: S83.241D Other tear of medial meniscus, current injury, right knee, subsequent encounter (principal); X58.XXXD Exposure to other specified factors, subsequent encounter
CPT/HCPCS: 73721

== ENCOUNTER 2024-06-26 08:26 | Day surgery (SDC) | payer BC, SELFPAY ==
[2024-06-26] VITALS (22 sets, daily range): BP systolic 93–141; BP diastolic 65–97; PULSE 46–72; RESP 12–21; TEMP 36.2–36.7; O2SAT 96–100; BMI 35.3
--- NOTE | 2024-06-26 06:35 | W.ANESPRE ---
General Info Date of Service Date Performed: 06/26/24 Height: 5 ft 10 in Weight: 111.584 kg Body Mass Index (BMI): 35.3 Surgical Procedure: Operation Date: 06/26/24 09:40 Proposed Procedure Side Surgeon p Knee Arthroscopy, Partial Medial Meniscectomy Right Jarett Summers MD Meds Allergies and Home Medications Allergies Allergy/AdvReac Type Severity Reaction Status Date / Time No Known Allergies Allergy Verified 06/26/24 08:47 Home Medication ?Medication ?Instructions ?Recorded amlodipine 10 mg tablet 10 mg PO HS 06/24/24 losartan 100 mg tablet 100 mg PO HS 06/24/24 Current Visit Medications: Current Medications Generic Name Dose Route Start Last Admin Trade Name Freq PRN Reason Stop Dose Admin Ringer's Solution 1,000 mls @ 30 mls/hr 06/26/24 06:00 IV 06/26/24 23:59 INFUSION CRYSTAL Tranexamic Acid/Sodium Chloride 1,000 mg in 100 mls @ 600 mls/hr 06/26/24 06:00 IVPB 06/26/24 23:59 PREOP CRYSTAL Cefazolin Sodium 3,000 mg/ 100 mls @ 200 mls/hr 06/26/24 06:00 Sodium Chloride IVPB 06/26/24 23:59 PREOP CRYSTAL IV Miscellaneous Supplies 1 each 06/26/24 06:00 Iv Access IV 06/26/24 23:59 DIRECTED CRYSTAL Sodium Chloride 0 ml 06/26/24 06:00 Normal Saline Flush 10 Ml Syr IV 06/26/24 23:59 PRN PRN Sodium Chloride 0 ml 06/26/24 06:00 Normal Saline 10 Ml Vial IJ 06/26/24 23:59 DIRECTED PRN Sterile Water 0 ml 06/26/24 06:00 Water,Injection,Sterile 10 Ml Vial IJ 06/26/24 23:59 DIRECTED PRN PFSH Active Problems Active Problems: Problem Status Onset Code Tear of medial meniscus of right knee Acute S83.241A Environmental allergies Acute Z91.09 Chronic rhinitis Acute J31.0 Impaired fasting glucose Acute ~2023 R73.01 BPH associated with nocturia Acute N40.1, R35.1 Hypertension Chronic I10 Surgical History Surgical History Status post endovenous radiofrequency ablation (RFA) of saphenous vein due to varicosity S/P sinus surgery (~2009) [facility] VEIN ABLATION (LEFT GREATER) (09/15/14) Tobacco Smoking/Tobacco Use Status: Former Tobacco Use Smokeless tobacco user: chewing tobacco Second hand exposure: No Alcohol Alcohol Intake: current Alcohol intake frequency: holidays/special occasions only Substance Use Substance use: Never Substance use type: does not use Vital Signs and Lab Results Vital Signs Most Recent Vital Signs in EMR: Temp Pulse Resp BP Pulse Ox 36.6 C 72 20 158/116 H 99 06/26/24 08:52 06/26/24 08:52 06/26/24 08:52 06/26/24 08:52 06/26/24 08:52 Lab Results Blood Type / Crossmatch: No Data to Display Complete Blood Count: No Data to Display Complete Metabolic Panel: No Data to Display Liver Function Panel: No Data to Display Coagulation Panel: No Data to Display Cardiac Panel: No Data to Display Arterial Blood Gas: No Data to Display Venous Blood Gas: No Data to Display Pancreas Panel: No Data to Display Thyroid Panel: No Data to Display Infectious Disease: No Data to Display Blood Cultures: No Data to Display Toxicology Panel: No Data to Display Anesthesia Assessment and Plan Anesthesia History Personal History: No History of Anesthesia Complications Family History: No Family History of Anesthesia Complications Exercise Tolerance Exercise Tolerance: Metabolic Equivalents>4 Cardiac & Pulmonary Exam Cardiac Exam: Normal S1/S2 Heart Sounds Pulmonary Exam: Clear Bilateral Breath Sounds Implantable Cardiac Device Does patient have a Pacemaker or an ICD?: No Airway Exam Known Difficult Airway: No Mallampati Class: 3 Mouth Opening: Narrow (< 3cm) Thyromental Distance: Greater than 3 cm Neck Range of Motion: Full ROM Neck Circumference: Normal Teeth Condition: Normal Dentition ASA Classification ASA Score: ASA 2 Emergency Case?: No NPO Status NPO Status: NPO Clears >2 hours, Solids >8 hours Anesthesia Plan Resuscitation Status: Full Code Anesthesia Technique: General Anesthesia Airway Planned: Endotracheal Tube Monitors Used: Standard Monitors Preoperative Comments:: 54 yo male for knee scope. Sig PMHx: HTN (losartan, amlodipine), BRITTANY, former smoker, ? current chewing tobacco, plan for GAETT with rescue LE block.
--- NOTE | 2024-06-26 07:09 | W.PM.DSUDISC ---
Date of service: 06/26/24 Discharge Plan Disposition Patient Disposition: Home Condition: Stable Discharge Details Attending Provider: Jarett Summers Primary Care Provider: Milvia Burt Home Meds and New Rx's Prescriptions: New aspirin 81 mg tablet,delayed release (DR/EC) 81 mg PO DAILY 14 Days Qty: 14 0RF naproxen 250 mg tablet 250 - 500 mg PO BID PRN (Reason: Moderate pain) Qty: 40 0RF oxycodone 5 mg tablet 5 - 10 mg PO Q4H PRN (Reason: Moderate to severe pain) Qty: 18 0RF Continued amlodipine 10 mg tablet 10 mg PO HS losartan 100 mg tablet 100 mg PO HS Discharge Instructions Additional Instructions: Surgery: Right knee arthroscopy with partial medial & lateral meniscectomy and synovectomy Activity: Weightbearing as tolerated. Advance range of motion as comfort allows. No knee brace or crutches needed as soon as comfortable. Recommend avoiding sports, pivoting, and squatting for 6-8 weeks. A physical therapy prescription will be sent electronically to start in 2 to 3 weeks. Prescriptions: Aspirin 81 mg take 1 daily to prevent a blood clot for 14 days Naproxen 250 mg take 1-2 every 12 hours with a meal as needed for moderate pain Oxycodone 5 mg take 1-2 every 4-6 hours as needed for severe pain You may use [id number] Tylenol (acetaminophen) as needed for mild pain. These pain medications may be taken all at once or in different combinations as needed. Also, recommend Colace (docusate) as a stool softener as surgery and pain medicine cause constipation. You may try titt-pok-ehltgzv diphenhydramine (Benadryl) 25-50 mg nightly as a sleep aid Dressings: Leave dressing in place for 3 days. May then remove and leave open to air or cover incisions with Band-Aids. Leave the sticky Steri-Strips in place until they fall off or remove them after you shower. May shower after 5 days. Follow-up: 10-[address] Summers You may take off the leg compression stockings this evening at home. You may also leave them on a few days longer if you have a history of leg swelling or edema. Let us know right away if you develop any redness, drainage, fevers, chest pain, or trouble breathing. Do not drink alcohol or drive for at least 24 hours after anesthesia. Please call the office during business hours with any questions or concerns. Stand Alone Forms: Anesthesia Discharge Inst., Félix Rosario (DSU) Referrals: Jarett Summers MD [ [facility] STAFF PHYSICIAN] - 07/08/24 2:30 pm Discharge Orders Discharge Orders: Discharge Order (Routine); Ordered 06/26/24 Ordered By: Ishmael Mcfadden DS: Diagnosis Discharge Diagnosis (1) Tear of medial meniscus of right knee: Status: Acute (2) Tear of lateral meniscus of right knee: Status: Acute
--- NOTE | 2024-06-26 07:32 | W.PM.OP ---
Operative Note Operative Note PRE-OP DIAGNOSIS: Right knee 1. Medial meniscus tear 2. Chondromalacia POST-OP DIAGNOSIS: same Right knee 1. Medial meniscus tear 2. Chondromalacia 3. Plica and synovitis 4. small Lateral meniscus tear PROCEDURE: Right knee 1. Partial medial & lateral meniscectomy, CPT #52856 2. Extensive debridement, CPT #90052: Suprapatellar synovitis, patellofemoral plical band, anterior and intercondylar synovitis, and intercondylar marginal osteophytes SURGEON: Jarett Summers DATA ANALYTICS CHIEF SCIENTIST: None None ANESTHESIA TYPE: Local By Surgeon Refer to Anesthesia Record ESTIMATED BLOOD LOSS: 5 PATHOLOGY: none sent TOURNIQUET TIME: 0 Patient was transported to: PACU Patient's condition: stable Indications: Please see complete medical record for details. Findings: Exam under anesthesia: Full range of motion, no instability Arthroscopic findings: Moderate suprapatellar synovitis, large thickened rubalcava patellofemoral engaging plical band blocking the medial compartment, moderate anterior synovitis, intercondylar small marginal osteophytes, mild medial chondromalacia, medial meniscus posterior horn and body inferior leaflet white to white-red zone tearing, small lateral meniscus body white zone fraying tearing. Intact ACL PCL. Procedure Description: In the operating room, general anesthesia was induced. The patient was positioned supine on the operating room table. All bony prominences were well-padded. Preoperative antibiotics were administered. The knee was prepped and draped in the usual sterile fashion. The correct patient, procedure, and side of the procedure were all verified prior to incision. Exam under anesthesia was performed. 10 cc of 0.25% bupivacaine containing epinephrine was infiltrated about the planned anteromedial and anterolateral knee arthroscopy portals. The portals were established and a complete diagnostic arthroscopy was performed with relevant findings detailed above. Mechanical shaver was used to remove synovitis from the suprapatellar space, anterior and intercondylar areas. The torpedo shaver was used to trim and resect intercondylar osteophytes. In the mechanical shaver was used to remove a thickened engaging patellofemoral medial plica to a smooth margin exposing the medial femoral condyle medial compartment. The medial meniscus was inspected and difficult to access given mild narrowing and tightness in the medial compartment. I need to gauge needle was used centrally MCL through a single skin stab and multiple passes through the MCL under direct visualization just proximal to the meniscus and a piecrust fashion was used to open the medial compartment nicely and achieve reasonable access of the posterior horn. Using a combination of meniscal biters and torpedo power shaver the torn meniscus was debrided to a stable margin, which involved removing a moderate part of the white white-red zone inferior leaflet of the posterior horn less toward the root and less into the body. Care was taken to preserve as much meniscus as reasonably possible. The meniscal rim was probed and stable. The lateral compartment then inspected and the body of the lateral meniscus had some white zone fraying redundancy and tearing which was readily trimmed with the torpedo shaver to more stable meniscal contour margin. The knee was copiously irrigated with arthroscopic fluid until there was a clear effluent before being drained of all fluid. The anteromedial and anterolateral portals were closed in 3-0 Monocryl in a buried interrupted fashion. An additional 20 cc of 0.25% bupivacaine with epinephrine was infiltrated about the medial compartment subcutaneous tissues. Mastisol, Steri-Strips, and 4 x 4 gauze were applied over the incisions. The knee was then wrapped gently with an NELLIE comressive bandage. The patient awoke from anesthesia without complication and was transferred to the recovery room in a stable condition. Date of Procedure: 06/26/24
[2024-06-26] MEDS: Lactated Ringers 1,000 ML 30 ML IV (09:23)
[2024-06-26] MEDS: ceFAZolin 3,000 MG in Normal Saline 100 ML 200 MG IVPB (09:54)
[2024-06-26] MEDS: TRANEXAMIC ACID/SOD. CHL. 1,000 MG/100 ML BAG 600 MG IVPB (10:03)
[2024-06-26] MEDS: Bupivacaine 0.25% Pres-Free W/EPI 30 ML VIAL (10:36)
[2024-06-26] MEDS: EPINEPHrine 10 MG/10 ML ML (10:36)
--- NOTE | 2024-06-26 11:28 | ANES.NERVE_ITS ---
Nerve Block Single Injection Procedure Date and Time Date Performed: 06/26/24 Procedure Start: 11:20 Location Where Procedure Performed Procedure Location: PACU Reason Performed: Postoperative Analgesia Requesting Provider: Jarett Summers Timeout Performed Timeout Performed: Yes Monitoring Used ECG, Blood Pressure and SpO2 Sterility Sterility: Hand Hygiene, Surgical Cap, Surgical Mask, Sterile Gloves and Chlorhexidine Sedation Given During Procedure Sedation Given (Indicate Dose Given): No Sedation given Patient Mental Status Patient Mental Status: Sedate with meaningful communication Nerve Block 1st Nerve Block: Laterality: Right Block Type: Adductor Canal Ultrasound Image Saved?: Yes Needle / Catheter Used: 100mm SonoPlex II Local Anesthetic Bolus (Indicate Dose Given): Lidocaine used for local infiltration of skin, Injected in 3-5ml increments after negative blood aspiration and Bupivacaine 0.25% Dose:: 13 mL Additives (Indicate Dose Given): None Ultrasound: Sterile probe cover and gel used Nerve Stimulator: Supplement to Ultrasound use and No twitch or parasthesia noted < 0.5 mA Paresthesia: None Procedure Tolerated: No Complications Procedure Outcome: Successful Procedure Comment: on arrival to PACU pain stated as 8/10. discussed plan of rescue block, pt chiki grays, will proceed. Performed By: Jamie Marquis
--- NOTE | 2024-06-26 11:29 | W.ANESPOSTOP ---
Postoperative Evaluation Date, Time and Location Date Performed: 06/26/24 Time Performed: 11:30 Patient Location: PACU Vital Signs Most Recent Imported Vital Signs: Most Recent Vital Signs Temp Pulse Resp BP Pulse Ox 36.7 C 48 L 15 93/77 L 97 06/26/24 11:21 06/26/24 11:21 06/26/24 11:21 06/26/24 11:21 06/26/24 11:21 Pain Score Most Recent Pain Score: Most Recent Pain Score Pain Level 8 06/26/24 11:21 Assessment Mental Status: Awake (Alert & Oriented to Patient Baseline) Airway and Respiratory Function: Patent airway with normal (patient baseline) respiratory exam Cardiovascular Function: Hemodynamically Stable Hydration Status: Adequately Hydrated Nausea & Vomiting: No Nausea or Vomiting Pain: Pain is Moderate or Severe Postoperative Pain Management: Ongoing Pain, being addressed with regional analgesia Peripheral Nerve Block: Regional nerve block not resolved at time of post operative discharge
[2024-06-26] MEDS: HYDROmorphone 1 MG/ML SYR IVP (11:35)
== END 2024-06-26 13:17 | disposition home or self-care (01) ==
LOC: SUR 08:26
PROVIDERS: PCP Nurse Practitioner Adult Health; Visit Provider Student in an Organized Health Care Education/Training Program
PROC: (CPT 29870; principal; 2024-06-26 09:30)
DX: S83.241A Other tear of medial meniscus, current injury, right knee, initial encounter (principal); S83.281A Other tear of lateral meniscus, current injury, right knee, initial encounter; X58.XXXA Exposure to other specified factors, initial encounter; M94.261 Chondromalacia, right knee; M67.51 Plica syndrome, right knee; M65.161 Other infective (teno)synovitis, right knee; G89.18 Other acute postprocedural pain
CPT/HCPCS: 29876; 29880; 64447; J0131; J0665; J0690; J1100; J1171; J1885; J2405; J2704; J3475

== ENCOUNTER 2024-09-08 03:15 | Outpatient (CLI) | payer BC, SELFPAY ==
[2024-09-08 07:55] LABS: ALT 55 U/L (16-63); AST 32 U/L (15-37); Albumin 4.2 g/dL (3.4-5.0); Alkaline Phosphatase 55 U/L (46-116); Anion Gap 8.2 mmol/L (3-11); BUN 20 mg/dL (7-18); Bilirubin, Total 0.9 mg/dL (0.2-1.0); CO2 26.8 mmol/L (21.0-32.0); CREATININE 1.3 mg/dL (0.70-1.30); Calcium 9.3 mg/dL (8.5-10.1); Calculated LDL 123 mg/dL (<100); Chloride 106 mmol/L (98-107); Cholesterol 196 mg/dL (<200); Estimated GFR 64.88 (mL/min/1.73m2); Glucose 104 mg/dL (74-106); HDL Cholesterol 60 mg/dL (>or=40); Potassium 4.3 mmol/L (3.5-5.1); Sodium 141 mmol/L (136-145); Total Protein 7.1 g/dL (6.4-8.2); Triglyceride 69 mg/dL (<150)
[2024-09-08 07:56] LABS: Hemoglobin A1C 5.5 % (<5.7)
== END 2024-09-08 03:16 | disposition home or self-care (01) ==
PROVIDERS: PCP Nurse Practitioner Adult Health; Referring Provider Nurse Practitioner Adult Health; Visit Provider Nurse Practitioner Adult Health
DX: I10 Essential (primary) hypertension (principal); R73.01 Impaired fasting glucose; Z13.6 Encounter for screening for cardiovascular disorders
CPT/HCPCS: 36415; 80053; 80061; 83036

== ENCOUNTER 2025-01-30 09:53 | Day surgery (SDC) | payer BC, SELFPAY ==
--- NOTE | 2025-01-29 16:17 | W.PM.DSUDISC ---
Date of service: 01/30/25 Discharge Plan Disposition Patient Disposition: Home Condition: Good Discharge Details Reason For Visit: Screening colonoscopy Attending Provider: Marcelino Jones Primary Care Provider: Milvia Burt Home Meds and New Rx's Prescriptions: Continued losartan-hydrochlorothiazide 50-12.5 mg tablet 1 tab PO DAILY AM Qty: 90 3RF Rx Instructions: BP with goal <140/90 naproxen 250 mg tablet 250 - 500 mg PO BID PRN (Reason: Moderate pain) Qty: 40 0RF Discontinued bisacodyl [Dulcolax (bisacodyl)] 5 mg tablet,delayed release (DR/EC) 5 mg PO ONCE Qty: 4 0RF Rx Instructions: Take per colonoscopy instructions provided by ordering providers office polyethylene glycol 3350 17 gram/dose powder 17 g PO ONCE Qty: 238 0RF Rx Instructions: Take per colonoscopy instructions provided by ordering providers office Discharge Instructions Additional Instructions: Ronen, was great to meet you today, and I hope you feel well after the procedure. Things went very smoothly. I saw no signs of any tumors, polyps, or anything to worry about. With no other significant risk factors, I recommend another colonoscopy in 10 years. 1. If tolerated, consume a soft, low fiber diet for 1-2 days. 2[address] Do not drive, drink alcohol, operate machinery, make critical decisions, or do activities that require coordination or balance for 24 hours. 3. Because air was put into your colon during the procedure, expelling air from your rectum (passing gas or farting) is normal. 4. You may not have a bowel movement for 1-3 days because of the colonoscopy prep. This is normal. 5. Go directly to the emergency room if you notice any of the following: Develop chills (warm to touch), or if you have a thermometer and your temperature is above 101 Difficulty breathing or difficultly swallowing Persistent vomiting Severe abdominal pain, other than gas cramps Severe chest pain Black, tarry stools Any bleeding ? exceeding one tablespoon 6. Call your physician if the site where your intravenous was started becomes red, swollen, painful, and warm to touch. 7. Your physician has reviewed your pre-procedure medications. Please continue to take those medications as previously ordered. You will be given specific information/education regarding any changes to your medications before leaving. Stand Alone Forms: Anesthesia Discharge Inst., Félix Rosario (DSU) Activity:: Activity as Tolerated Diet:: As Tolerated Discharge Orders Discharge Orders: Discharge Order (Routine); Ordered 01/29/25 Ordered By: Marcelino Jones DS: Diagnosis Discharge Diagnosis (1) Encounter for screening colonoscopy: Status: Acute Asessment and Plan: Follow-up on polypectomy results
--- NOTE | 2025-01-29 16:18 | W.COLOREPORT ---
Date of service: 01/30/25 Time of Service: 12:48 Colonoscopy Report Date of procedure: 01/30/25 Pre-op diagnosis general: Screening colonoscopy Post-op diagnosis procedure note: other (Negative screening colonoscopy) Procedure: Colonoscopy Surgeon: Marcelino Jones Anesthesia Type: General:No Airway Estimated blood loss (mL): 0 Pathology: none sent Complications: None Disposition: same day Indications: Ronen is a 54-year-old male reports a family history of colon cancer who needs his next screening colonoscopy Prep: Miralax/Dulcolax Procedure Start Time: 12:16 Procedure End Time: 12:32 Retraction Time: 10 Findings: Negative screening colonoscopy Procedure Description: After the induction of anesthesia, and with the patient in left lateral decubitus position, I began by performing an external anorectal exam.? Perineum and skin were normal, as was the anal verge.? There was no evidence of external hemorrhoids.? Next, I performed a digital rectal exam.? I did not appreciate any abnormal findings.? Next, I advanced a colonoscope into the rectal vault.? I performed retroflexion.? This was normal.? Using irrigation, I then advanced the colonoscope beyond the rectal folds and into the sigmoid colon before advancing towards the cecum.? The quality of the prep was outstanding.? The scope was noted to be in the cecum by identification of the ileocecal valve and appendiceal orifice.? I then began withdrawing the colonoscope using repeated irrigation as necessary for full evaluation of the colonic mucosa. ?Once the scope was withdrawn to the level of the rectum, great care was taken to examine portions of the rectal folds.? I saw no signs of tumors, polyps, or any other worrisome pathology. Finally, the scope was withdrawn and the patient was brought to the same-day surgery recovery unit as the anesthetic wore off. ?The findings and instructions were shared with the patient prior to discharge. [place] Bowel Prep [place] Bowel Prep Right Colon: 3 Left Colon: 3 Transverse Colon: 3 Total Score: 9
[2025-01-30 10:25] VITALS: BP 131/97; PULSE 64; RESP 16; TEMP 36.4; O2SAT 99
[2025-01-30] MEDS: Lactated Ringers 1,000 ML 80 ML IV (11:19)
--- NOTE | 2025-01-30 11:32 | ANES.PREOP_ITS ---
General Info Date of Service Date Performed: 01/30/25 Height: 5 ft 10 in Weight: 106.4 kg Body Mass Index (BMI): 33.6 Surgical Procedure: Operation Date: 01/30/25 11:35 Proposed Procedure Side Surgeon p Grey Jones MD Meds Allergies and Home Medications Allergies Allergy/AdvReac Type Severity Reaction Status Date / Time amlodipine AdvReac Intermediate LE edema Verified 01/30/25 10:52 Home Medication ?Medication ?Instructions ?Recorded naproxen 250 mg tablet 250 - 500 mg (1 - 2 x 250 mg ) PO 06/26/24 Held on 01/30/25. BID PRN Moderate pain #40 ta bs Instructions: Pt Stopped/Never Started losartan 50 mg-hydrochlorothiazide 1 tab PO DAILY AM # 90 tabs 01/12/25 12.5 mg tablet Current Visit Medications: Current Medications Generic Name Dose Route Start Last Admin Trade Name Freq PRN Reason Stop Dose Admin Ringer's Solution 1,000 mls @ 80 mls/hr 01/30/25 06:00 01/30/25 11:19 IV 01/30/25 23:59 80 mls/hr INFUSION CRYSTAL Administration IV Miscellaneous Supplies 1 each 01/30/25 06:00 Iv Access IV 01/30/25 23:59 DIRECTED CRYSTAL Sodium Chloride 0 ml 01/30/25 06:00 Normal Saline Flush 10 Ml Syr IV 01/30/25 23:59 PRN PRN Sodium Chloride 0 ml 01/30/25 06:00 Normal Saline 10 Ml Vial IJ 01/30/25 23:59 DIRECTED PRN Sterile Water 0 ml 01/30/25 06:00 Water,Injection,Sterile 10 Ml Vial IJ 01/30/25 23:59 DIRECTED PRN PFSH Active Problems Active Problems: Problem Status Onset Code Encounter for screening colonoscopy Acute Z12.11 Environmental allergies Acute Z91.09 Chronic rhinitis Acute J31.0 Impaired fasting glucose Acute ~2023 R73.01 BPH associated with nocturia Acute N40.1, 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 VEIN ABLATION (LEFT GREATER) (09/15/14) Tobacco Smoking/Tobacco Use Status: Former Tobacco Use Smokeless tobacco user: chewing tobacco Passive smoking exposure: No Second hand exposure: No Alcohol Alcohol Intake: current Alcohol intake frequency: holidays/special occasions only Substance Use Substance use: Never Substance use type: does not use Details: alcohol: t-14 Vital Signs and Lab Results Vital Signs Most Recent Vital Signs in EMR: Most Recent Vital Signs Temp Pulse Resp BP Pulse Ox 36.4 C L 64 16 131/97 H 99 01/30/25 10:25 01/30/25 10:25 01/30/25 10:25 01/30/25 10:25 01/30/25 10:25 Anesthesia Assessment and Plan Anesthesia History Personal History: No History of Anesthesia Complications Family History: No Family History of Anesthesia Complications Exercise Tolerance Exercise Tolerance: Metabolic Equivalents>4 Pertinent Negatives Pertinent Negatives: No Major Cardiovascular Symptoms or Complaints and No Major Pulmonary Symptoms or Complaints Cardiac & Pulmonary Exam Cardiac Exam: Normal S1/S2 Heart Sounds Pulmonary Exam: Clear Bilateral Breath Sounds Implantable Cardiac Device Does patient have a Pacemaker or an ICD?: No Airway Exam Known Difficult Airway: No Mallampati Class: 3 Mouth Opening: Narrow (< 3cm) Thyromental Distance: Greater than 3 cm Neck Range of Motion: Full ROM Neck Circumference: Normal Teeth Condition: Normal Dentition ASA Classification ASA Score: ASA 2 Emergency Case?: No NPO Status NPO Status: NPO Clears >2 hours, Solids >8 hours Anesthesia Plan Resuscitation Status: Full Code Anesthesia Technique: General Anesthesia Airway Planned: Natural Airway Monitors Used: Standard Monitors
[2025-01-30 11:33] VITALS: BMI 33.6
[2025-01-30 12:48] VITALS: BP 115/76; PULSE 70; RESP 16; TEMP 36.6; O2SAT 97
--- NOTE | 2025-01-30 13:02 | W.ANESPOSTOP ---
Postoperative Evaluation Date, Time and Location Date Performed: 01/30/25 Time Performed: 13:02 Patient Location: Day Surgery Unit Vital Signs Most Recent Imported Vital Signs: Most Recent Vital Signs Temp Pulse Resp BP Pulse Ox 36.6 C 70 16 115/76 97 01/30/25 12:48 01/30/25 12:48 01/30/25 12:48 01/30/25 12:48 01/30/25 12:48 Pain Score Most Recent Pain Score: Most Recent Pain Score Pain Level 0 01/30/25 12:48 Assessment Mental Status: Awake (Alert & Oriented to Patient Baseline) Airway and Respiratory Function: Patent airway with normal (patient baseline) respiratory exam Cardiovascular Function: Hemodynamically Stable Hydration Status: Adequately Hydrated Nausea & Vomiting: No Nausea or Vomiting Pain: Pt. Denies Any Pain Peripheral Nerve Block: Patient did not receive a nerve block
[2025-01-30 13:19] VITALS: BP 151/103; PULSE 66; RESP 16; TEMP 36.4; O2SAT 97
== END 2025-01-30 13:29 | disposition home or self-care (01) ==
LOC: SUR 09:53
PROVIDERS: PCP Nurse Practitioner Adult Health; Visit Provider Surgery
PROC: 0DJD8ZZ Inspection of Lower Intestinal Tract, Via Natural or Artificial Opening Endoscopic (ICD-10-PCS; CPT 45378; principal; 2025-01-30 11:30)
DX: Z12.11 Encounter for screening for malignant neoplasm of colon (principal); Z80.0 Family history of malignant neoplasm of digestive organs
CPT/HCPCS: 45378; J2003; J2704